=== PATIENT | female | born 1945 | race Caucasian/White ===

== ENCOUNTER 2018-06-20 05:52 | Inpatient (IN) | payer MEDICARE, SELFPAY | END 2018-06-21 12:00 | disposition home or self-care (01) | LOC: DAHIP 05:52 → 4AH 12:11 | PROC: 01N10ZZ Release Cervical Nerve, Open Approach (ICD-10-PCS; principal; 2018-06-20 07:30) | PROC: 0RG10J1 Fusion of Cervical Vertebral Joint with Synthetic Substitute, Posterior Approach, Posterior Column, Open Approach (ICD-10-PCS; 2018-06-20 07:30) | DX: M54.10 Radiculopathy, site unspecified (principal); M48.02 Spinal stenosis, cervical region ==

== ENCOUNTER → 2018-07-29 | Outpatient (CLI) | payer MEDICARE ==
[~2018-07-29] MED LIST: AEC81 PO; ASCO10007 PO; CALC-190 PO; GARL1000 PO; LOSA100T58 PO; LYSI500T PO; MVIT PO; TRIA1TAB5 PO; TURM500C4 PO
== END | disposition home or self-care (01) ==
LOC: OIH 08:54
PROVIDERS: ATTEND Neurological Surgery
DX: M50.323 Other cervical disc degeneration at C6-C7 level (principal); M48.02 Spinal stenosis, cervical region; Z98.1 Arthrodesis status
CPT/HCPCS: 72040